=== PATIENT | male | born 1955 | race Caucasian/White ===

== ENCOUNTER 2021-01-10 08:27 | Outpatient (REF) | payer MEDICARE, SELFPAY | END 2021-01-10 08:28 | disposition home or self-care (01) | LOC: HO.LHD 08:27 | PROVIDERS: Visit Provider Nurse Practitioner | DX: Z13.89 Encounter for screening for other disorder (principal) ==

== ENCOUNTER 2021-01-11 00:36 | Outpatient (REF) | payer MEDICARE, SELFPAY | END 2021-01-11 00:37 | disposition home or self-care (01) | LOC: HO.HSH 00:36 | PROVIDERS: Visit Provider Nurse Practitioner | DX: Z13.89 Encounter for screening for other disorder (principal) ==

== ENCOUNTER 2021-01-12 01:17 | Outpatient (REF) | payer MEDICARE, SELFPAY ==
[2021-01-12 09:22] LABS: Alanine Aminotransferase 14 U/L (0-40); Aspartate Amino Transferase 17 U/L (5-37); Cholesterol 195 mg/dL; Glucose Fasting 80 mg/dL (60-99); HDL Cholesterol 31 mg/dL; LDL Cholesterol Calculated 126 mg/dl; Triglycerides 192 mg/dL
[2021-01-12 09:33] LABS: Estimated Average Glucose 97 mg/dL; Hemoglobin A1C 126.0229 umol/L
[2021-01-12 09:48] LABS: Prostate Specific Antigen 6.22 ng/mL (<0.05-4.0)
== END 2021-01-12 01:18 | disposition home or self-care (01) ==
LOC: HO.HSH 01:17
PROVIDERS: Visit Provider Nurse Practitioner
DX: Z12.5 Encounter for screening for malignant neoplasm of prostate (principal); E11.9 Type 2 diabetes mellitus without complications; E78.5 Hyperlipidemia, unspecified; R97.20 Elevated prostate specific antigen [PSA]
CPT/HCPCS: 36415; 80061; 82947; 83036; 84153; 84450; 84460

== ENCOUNTER 2021-01-26 12:48 | Outpatient (REF) | payer MEDICARE, SELFPAY ==
--- NOTE | ~2021-01-26 | XR_ITS ---
EXAMINATION: XR HIP, LEFT CLINICAL INFORMATION: Left hip pain COMPARISON: Lumbar spine 02/20/2014 TECHNIQUE: Two views of the left hip. FINDINGS: There is no visible acute fracture, dislocation. There is an lucency seen overlying the left lateral femoral head most likely a nutrient foramina. There is hypertrophic spurring and subchondral lucencies in the greater trochanter likely degenerative changes. No visible acute fracture or dislocation seen. The soft tissues are normal. XR/XR hip LT min 2V IMPRESSION: No acute fracture or dislocation seen. Lucency seen along the left lateral femoral head is likely a nutrient foramina. There is mild degenerative changes left hip joint.
== END 2021-01-26 12:49 | disposition home or self-care (01) ==
LOC: HO.XRAY 12:48
PROVIDERS: Visit Provider Nurse Practitioner
DX: M25.552 Pain in left hip (principal)
CPT/HCPCS: 73502

== ENCOUNTER 2021-04-20 | Outpatient (REF) | payer MEDICARE, SELFPAY ==
[2021-04-20 08:23] LABS: Anion Gap 12 (12-20); Blood Urea Nitrogen 21 mg/dL (9-16); Calcium 9.4 mg/dL (8.4-10.2); Carbon Dioxide 26 mmol/L (22-29); Chloride 103 mmol/L (96-108); Estimated Glomerular Filt Rate > 60; Glucose Random 88 mg/dL (60-115); Potassium 4.4 mmol/L (3.3-5.1); Sodium 137 mmol/L (135-145)
== END 2021-04-20 00:01 | disposition home or self-care (01) ==
LOC: HO.HSHHMC
PROVIDERS: Visit Provider Nurse Practitioner
DX: M54.9 Dorsalgia, unspecified (principal)
CPT/HCPCS: 36415; 80048

== ENCOUNTER 2021-05-02 06:09 | Outpatient (REF) | payer MEDICARE, SELFPAY ==
[2021-05-02 12:15] LABS: Glucose Urine UA NEG (NEG); Leukocyte Esterase Urine NEG (NEG); Nitrite Urine NEG (NEG); Urine Blood NEG (NEG); Urine Ketones 5 MG/DL (NEG); Urine Protein NEG (NEG-TRACE)
[2021-05-02 12:16] LABS: Appearance Urine CLEAR; Color Urine YELLOW
[2021-05-02 12:57] LABS: Mucus Urine 1+ /LPF; RBC Urine 0 /HPF (0); WBC Urine 0 /HPF (0-4)
== END 2021-05-02 06:10 | disposition home or self-care (01) ==
LOC: HO.HSH4W 06:09
PROVIDERS: Visit Provider Internal Medicine
DX: E78.5 Hyperlipidemia, unspecified (principal); R31.9 Hematuria, unspecified; F20.9 Schizophrenia, unspecified
CPT/HCPCS: 81001; 87086

== ENCOUNTER 2021-05-03 05:00 | Outpatient (REF) | payer MEDICARE, SELFPAY ==
[2021-05-03 07:44] LABS: MANUAL DIFF FLAG NO
[2021-05-03 07:48] LABS: Basophils Percent Auto 0.3 % (0-2); Eosinophils Absolute Auto 0.1 X10*3/uL (0.0-0.4); Eosinophils Percent Auto 0.8 % (0-4); Hematocrit 46.9 % (42-52); Hemoglobin 15.8 g/dl (14.0-18.0); Imm Gran Abs Auto 0.04 X10*3/uL (0.00-0.03); Imm Gran Pct Auto 0.6 % (0.0-0.4); Lymphocytes Absolute Auto 1.5 X10*3/uL (1.2-4.9); Lymphocytes Percent Auto 23.9 % (20-40); Mean Corpuscular HGB Conc 33.7 g/dl (31.0-36.0); Mean Corpuscular Hemoglobin 30.5 pg (27.0-33.0); Mean Corpuscular Volume 90.5 fL (80-98); Mean Platelet Volume 11.3 fL (9.4-12.4); Monocytes Absolute Auto 0.5 X10*3/uL (0.1-1.2); Monocytes Percent Auto 7.5 % (2-11); Neutrophils Absolute Auto 4.3 X10*3/uL (2.0-8.3); Neutrophils Percent Auto 66.9 % (45-73); Platelet Count 207 X10*3/uL (160-400); Red Blood Count 5.18 X10*6/uL (4.60-5.80); Red Cell Distribution Width 13.6 % (11.0-16.0); White Blood Count 6.4 X10*3/uL (4.8-10.8)
[2021-05-03 07:59] LABS: Alanine Aminotransferase 19 U/L (0-40); Albumin Level 4.2 g/dL (3.5-5.0); Alkaline Phosphatase 55 U/L (39-117); Anion Gap 13 (12-20); Aspartate Amino Transferase 15 U/L (5-37); Bilirubin Total 0.9 mg/dL (0.0-1.0); Blood Urea Nitrogen 19 mg/dL (9-16); Calcium 9.5 mg/dL (8.4-10.2); Carbon Dioxide 26 mmol/L (22-29); Chloride 103 mmol/L (96-108); Cholesterol 154 mg/dL; Estimated Glomerular Filt Rate > 60; Glucose Fasting 91 mg/dL (60-99); HDL Cholesterol 28 mg/dL; LDL Cholesterol Calculated 103 mg/dl; Potassium 4.5 mmol/L (3.3-5.1); Sodium 137 mmol/L (135-145); Total Protein 6.7 g/dL (6.5-8.0); Triglycerides 118 mg/dL
[2021-05-03 08:20] LABS: Thyroid Stimulating Hormone 1.13 uIU/mL (0.32-4.0)
[2021-05-06 14:46] LABS: TS Negative Control Passed; TS Panel A 0; TS Panel B 0; TS Positive Control Passed; TSpotTB Negative (SeeBelow)
== END 2021-05-03 05:01 | disposition home or self-care (01) ==
LOC: HO.HSH4W 05:00
PROVIDERS: Visit Provider Internal Medicine
DX: E78.5 Hyperlipidemia, unspecified (principal); R31.9 Hematuria, unspecified; F20.9 Schizophrenia, unspecified
CPT/HCPCS: 36415; 80053; 80061; 84443; 85025; 86481

== ENCOUNTER 2021-05-10 06:08 | Outpatient (REF) | payer MEDICARE, SELFPAY ==
[2021-05-10 09:02] LABS: Erythrocyte Sedimentation Rate 8 MM/HR (0-15)
== END 2021-05-10 06:09 | disposition home or self-care (01) ==
LOC: HO.HSH4W 06:08
PROVIDERS: Visit Provider Internal Medicine
DX: M79.659 Pain in unspecified thigh (principal)
CPT/HCPCS: 36415; 85652

== ENCOUNTER 2021-05-11 18:16 | Outpatient (REF) | payer MEDICARE, SELFPAY ==
[2021-05-11 19:00] LABS: Troponin-I High Sensitivity < 3.5 ng/L (<3.5-35.0)
== END 2021-05-11 18:17 | disposition home or self-care (01) ==
LOC: HO.HSH4W 18:16
PROVIDERS: Visit Provider Internal Medicine
DX: I10 Essential (primary) hypertension (principal)
CPT/HCPCS: 36415; 84484

== ENCOUNTER 2021-06-24 11:10 | Outpatient (REF) | payer MEDICARE, SELFPAY ==
[2021-06-24 14:38] LABS: Vitamin B12 307 pg/mL (200-900)
[2021-06-24 14:53] LABS: Erythrocyte Sedimentation Rate 8 MM/HR (0-15)
== END 2021-06-24 11:11 | disposition home or self-care (01) ==
LOC: HO.HSH4W 11:10
PROVIDERS: Visit Provider Internal Medicine
DX: M79.605 Pain in left leg (principal)
CPT/HCPCS: 36415; 82550; 82607; 83735; 85652

== ENCOUNTER 2021-08-10 07:09 | Outpatient (REF) | payer MEDICARE, SELFPAY ==
[2021-08-10 08:09] LABS: Cholesterol 132 mg/dL; HDL Cholesterol 28 mg/dL; LDL Cholesterol Calculated 89 mg/dl; Triglycerides 77 mg/dL
[2021-08-10 08:33] LABS: Prostate Specific Antigen 6.22 ng/mL (<0.05-4.0)
== END 2021-08-10 07:10 | disposition home or self-care (01) ==
LOC: HO.HSH4W 07:09
PROVIDERS: Visit Provider Internal Medicine
DX: M79.652 Pain in left thigh (principal); Z12.5 Encounter for screening for malignant neoplasm of prostate
CPT/HCPCS: 36415; 80061; 84153

== ENCOUNTER 2021-10-26 06:42 | Outpatient (REF) | payer MEDICARE, SELFPAY ==
[2021-10-26 07:56] LABS: Alanine Aminotransferase 9 U/L (0-40); Albumin Level 3.8 g/dL (3.5-5.0); Alkaline Phosphatase 60 U/L (39-117); Anion Gap 9 (12-20); Aspartate Amino Transferase 13 U/L (5-37); Bilirubin Total 0.7 mg/dL (0.0-1.0); Blood Urea Nitrogen 18 mg/dL (9-16); Calcium 9.2 mg/dL (8.4-10.2); Carbon Dioxide 29 mmol/L (22-29); Chloride 106 mmol/L (96-108); Estimated Glomerular Filt Rate > 60; Glucose Fasting 81 mg/dL (60-99); Potassium 4.2 mmol/L (3.3-5.1); Sodium 140 mmol/L (135-145); Total Protein 6.4 g/dL (6.5-8.0)
[2021-10-26 08:22] LABS: Thyroid Stimulating Hormone 1.82 uIU/mL (0.32-4.0)
== END 2021-10-26 06:43 | disposition home or self-care (01) ==
LOC: HO.HSH4W 06:42
PROVIDERS: Visit Provider Internal Medicine
DX: R97.20 Elevated prostate specific antigen [PSA] (principal); F25.9 Schizoaffective disorder, unspecified; Z12.5 Encounter for screening for malignant neoplasm of prostate
CPT/HCPCS: 36415; 80053; 84153; 84443

== ENCOUNTER 2021-12-28 05:38 | Outpatient (REF) | payer MEDICARE, SELFPAY ==
[2021-12-28 07:33] LABS: Alanine Aminotransferase 13 U/L (0-40); Albumin Level 4.2 g/dL (3.5-5.0); Alkaline Phosphatase 62 U/L (39-117); Anion Gap 12 (12-20); Aspartate Amino Transferase 13 U/L (5-37); Bilirubin Total 0.6 mg/dL (0.0-1.0); Blood Urea Nitrogen 23 mg/dL (9-16); Calcium 9.5 mg/dL (8.4-10.2); Carbon Dioxide 25 mmol/L (22-29); Chloride 105 mmol/L (96-108); Estimated Glomerular Filt Rate > 60; Glucose Fasting 84 mg/dL (60-99); Potassium 4.3 mmol/L (3.3-5.1); Sodium 138 mmol/L (135-145)
[2021-12-28 07:56] LABS: Erythrocyte Sedimentation Rate 10 MM/HR (0-15)
== END 2021-12-28 05:39 | disposition home or self-care (01) ==
LOC: HO.HSH4W 05:38
PROVIDERS: Visit Provider Internal Medicine
DX: F25.9 Schizoaffective disorder, unspecified (principal); M79.18 Myalgia, other site
CPT/HCPCS: 36415; 80053; 85652

== ENCOUNTER 2022-01-31 05:56 | Outpatient (REF) | payer MEDICARE, SELFPAY ==
[2022-01-31 08:24] LABS: Alanine Aminotransferase 11 U/L (0-40); Albumin Level 3.6 g/dL (3.5-5.0); Alkaline Phosphatase 56 U/L (39-117); Anion Gap 12 (12-20); Aspartate Amino Transferase 11 U/L (5-37); Bilirubin Total 0.3 mg/dL (0.0-1.0); Blood Urea Nitrogen 19 mg/dL (9-16); Calcium 8.9 mg/dL (8.4-10.2); Carbon Dioxide 27 mmol/L (22-29); Chloride 106 mmol/L (96-108); Estimated Glomerular Filt Rate > 60; Glucose Fasting 87 mg/dL (60-99); Potassium 4.5 mmol/L (3.3-5.1); Sodium 140 mmol/L (135-145); Total Protein 6.1 g/dL (6.5-8.0)
== END 2022-01-31 05:57 | disposition home or self-care (01) ==
LOC: HO.HSH4W 05:56
PROVIDERS: Visit Provider Internal Medicine
DX: F32.A Depression, unspecified (principal); M54.50 Low back pain, unspecified
CPT/HCPCS: 36415; 80053; 84443

== ENCOUNTER 2022-02-22 06:04 | Outpatient (REF) | payer MEDICARE, SELFPAY ==
[2022-02-22 07:30] LABS: Alanine Aminotransferase 17 U/L (0-40); Albumin Level 4.2 g/dL (3.5-5.0); Alkaline Phosphatase 66 U/L (39-117); Anion Gap 13 (12-20); Aspartate Amino Transferase 17 U/L (5-37); Bilirubin Total 0.5 mg/dL (0.0-1.0); Blood Urea Nitrogen 22 mg/dL (9-16); Calcium 9.9 mg/dL (8.4-10.2); Carbon Dioxide 26 mmol/L (22-29); Chloride 105 mmol/L (96-108); Estimated Glomerular Filt Rate > 60; Glucose Fasting 77 mg/dL (60-99); Potassium 4.5 mmol/L (3.3-5.1); Sodium 139 mmol/L (135-145); Total Protein 7.4 g/dL (6.5-8.0)
== END 2022-02-22 06:05 | disposition home or self-care (01) ==
LOC: HO.HSH4W 06:04
PROVIDERS: Visit Provider Internal Medicine
DX: F25.9 Schizoaffective disorder, unspecified (principal)
CPT/HCPCS: 36415; 80053

== ENCOUNTER 2022-03-16 13:38 | Outpatient (REF) | payer MEDICARE, SELFPAY ==
--- NOTE | ~2022-03-16 | CT_ITS ---
EXAMINATION: CT PELVIS WITH CONTRAST CLINICAL INFORMATION: Left ilium/left buttocks pain. COMPARISON: None. TECHNIQUE: Helical scanning was performed with submillimeter collimation through the pelvis with the use of oral contrast and during bolus intravenous injection of 85 mL of Omnipaque 350 intravenous contrast. Sagittal and coronal multiplanar 2-D reconstructions were obtained. This CT examination was performed using dose optimization techniques as appropriate, variously including the following: *Automated exposure control *Adjustment of mA and/or kV according to patient size (this includes techniques or standardized protocols for targeted exams where dose is matched to indication/reason for exam; i.e. extremities or head) *Use of iterative reconstruction technique DLP: 506 mGy-cm FINDINGS: PELVIS: The pelvic bowel loops are unremarkable. No pelvic bowel obstruction. Mild prostatomegaly. Otherwise, the visualized intrapelvic structures are unremarkable. No pelvic wall hernia. OSSEOUS STRUCTURES: No acute fracture or dislocation. No concerning lytic or blastic osseous lesion. Severe left hip joint space narrowing with subchondral cirrhosis and marginal osteophytes. More moderate right hip joint space narrowing with marginal osteophytes. Partially visualized degenerative disc disease and facet arthropathy within the lower lumbar spine. CT/CT pelvis w con IMPRESSION: 1. No acute fracture or dislocation. No concerning lytic or blastic osseous lesion. 2. Severe left and moderate right hip osteoarthritis. Partially visualized degenerative disc disease and facet arthropathy within the lower lumbar spine. 3. Prostatomegaly.
[2022-03-16] MEDS: iohexoL 350 MG/ML 100 ML INFUS..BTL IV (16:57)
[2022-03-16] MEDS: Barium Sulfate Oral (Berry) 450 ML ORAL.SUSP 900 ML PO (16:58)
== END 2022-03-16 13:39 | disposition home or self-care (01) ==
LOC: HO.CT 13:38
PROVIDERS: Visit Provider Internal Medicine
DX: M89.9 Disorder of bone, unspecified (principal); C49.21 Malignant neoplasm of connective and soft tissue of right lower limb, including hip
CPT/HCPCS: 72193; Q9967

== ENCOUNTER 2022-09-05 05:43 | Outpatient (REF) | payer MEDICARE, SELFPAY ==
[2022-09-05 08:00] LABS: MANUAL DIFF FLAG NO
[2022-09-05 08:02] LABS: Basophils Percent Auto 0.7 % (0-2); Eosinophils Absolute Auto 0.1 X10*3/uL (0.0-0.4); Eosinophils Percent Auto 2.2 % (0-4); Hematocrit 48.6 % (42.0-52.0); Hemoglobin 16.3 g/dl (14.0-18.0); Imm Gran Abs Auto 0.03 X10*3/uL (0.00-0.03); Imm Gran Pct Auto 0.5 % (0.0-0.4); Lymphocytes Absolute Auto 2.4 X10*3/uL (1.2-4.9); Lymphocytes Percent Auto 40.6 % (20-40); Mean Corpuscular HGB Conc 33.5 g/dl (31.0-36.0); Mean Corpuscular Hemoglobin 30.7 pg (27.0-33.0); Mean Corpuscular Volume 91.5 fL (80.0-98.0); Mean Platelet Volume 11.1 fL (9.4-12.4); Monocytes Absolute Auto 0.4 X10*3/uL (0.1-1.2); Monocytes Percent Auto 7.3 % (2-11); Neutrophils Absolute Auto 2.9 x10*3/uL (2.0-8.3); Neutrophils Percent Auto 48.7 % (45-73); Platelet Count 230 X10*3/uL (160-400); Red Blood Count 5.31 X10*6/uL (4.60-5.80); Red Cell Distribution Width 13.2 % (11.0-16.0); White Blood Count 5.9 X10*3/uL (4.8-10.8)
[2022-09-05 08:46] LABS: Alanine Aminotransferase 14 U/L (0-40); Albumin Level 4.1 g/dL (3.5-5.0); Alkaline Phosphatase 66 U/L (39-117); Anion Gap 15 (12-20); Aspartate Amino Transferase 16 U/L (5-37); Bilirubin Total 0.4 mg/dL (0.0-1.0); Blood Urea Nitrogen 27 mg/dL (9-16); Calcium 9.3 mg/dL (8.4-10.2); Carbon Dioxide 24 mmol/L (22-29); Chloride 106 mmol/L (96-108); Erythrocyte Sedimentation Rate 33 MM/HR (0-15); Estimated Glomerular Filt Rate > 60; Glucose Fasting 88 mg/dL (60-99); Potassium 4.7 mmol/L (3.3-5.1); Sodium 140 mmol/L (135-145); Total Protein 7.1 g/dL (6.5-8.0); Uric Acid 6.7 mg/dL (3.4-7.0)
== END 2022-09-05 05:44 | disposition home or self-care (01) ==
LOC: HO.HSH4W 05:43
PROVIDERS: Visit Provider Internal Medicine
DX: M25.561 Pain in right knee (principal); F20.9 Schizophrenia, unspecified
CPT/HCPCS: 36415; 80053; 84550; 85025; 85652

== ENCOUNTER 2023-04-05 18:53 | Outpatient (REF) | payer MEDICARE, SELFPAY ==
[2023-04-05 19:19] LABS: Appearance Urine Clear; Color Urine Yellow; Glucose Urine UA Negative (Negative); Leukocyte Esterase Urine Negative (Negative); Nitrite Urine Negative (Negative); PH 5.5 (5.0-9.0); Urine Blood Negative (Negative); Urine Ketones Negative (Negative); Urine Protein Negative (Neg-Trace)
== END 2023-04-05 18:54 | disposition home or self-care (01) ==
LOC: HO.HSH4W 18:53
PROVIDERS: Visit Provider Internal Medicine
DX: R31.29 Other microscopic hematuria (principal)
CPT/HCPCS: 81003

== ENCOUNTER 2023-04-06 05:44 | Outpatient (REF) | payer MEDICARE, SELFPAY ==
[2023-04-06 08:39] LABS: PSA,Total (Free>4and<10) 7.41 ng/mL (0.00-4.00)
[2023-04-09 11:32] LABS: Free Prostate Spec Ag 1.5 ng/mL; Percent Free Prostate Spec Ag 21 % (calc) (>25)
== END 2023-04-06 05:45 | disposition home or self-care (01) ==
LOC: HO.HSH4W 05:44
PROVIDERS: Visit Provider Internal Medicine
DX: Z12.5 Encounter for screening for malignant neoplasm of prostate (principal); R97.20 Elevated prostate specific antigen [PSA]
CPT/HCPCS: 36415; 84153; 84154

== ENCOUNTER 2023-04-18 09:30 | Outpatient (AMB) | payer MEDICARE, SELFPAY ==
--- NOTE | 2023-04-18 09:33 | MHC.OFFVIS ---
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: No Allergies No Known Allergies [No Known Allergies*] Allergy (Unverified 04/18/23 20:02) Medication List - Last Reconciled 04/18/23 by KOSTAS Bond acetaminophen 650 mg PO BEDTIME PRN bisacodyl 10 mg MT DAILY PRN docusate sodium 100 mg PO DAILY duloxetine 30 mg PO DAILY edetate disodium 3% drps ophthalmic (eye) gabapentin 300 mg PO BEDTIME lidocaine 5% 1 patch topical DAILY loratadine (Allergy Relief (loratadine)) 10 mg PO DAILY magnesium hydroxide (Dulcolax (magnesium hydroxide)) 30 mL PO DAILY PRN melatonin 3 mg PO BEDTIME PRN olanzapine 5 mg PO DAILY olanzapine 10 mg PO BEDTIME polyethylene glycol 3350 17 grams PO DAILY sodium phosphates 19-7 gram/118 mL (Enema Disposable) 118 mL MT DAILY PRN HPI HPI Comments History of Present Illness Details Aki is a 67-year-old male patient of Dr. Arevalo who resides at the [facility]. He has a past medical history of age related osteoporosis, benign prostatic hyperplasia without lower urinary tract symptoms, constipation, deviated nasal septum, elevated PSA, hypertension, hyperlipidemia, insomnia, major depressive disorder, nicotine dependence, schizophrenia, Parkinson's disease, and type 2 diabetes. He is being followed up on today for elevated PSA. In discussion with the patient today he reports to be doing and feeling well. He denies any issues with his urination. He reports to be happy with current voiding parameters. When asked he denies urinary urgency, urinary frequency, incontinence, nocturia, hematuria, dysuria, foul smelling urine, changes to urinary stream, flank pain, fever, and or chills. Discussed at length potential causes for elevated PSA. Discussed obtaining redraw of PSA with no sex the night before, no caffeine morning of, and no heavy lifting 1-2 days prior to lab draw. Discussed obtaining retroperitoneal ultrasound for further assessment evaluation. MAGGIE offered however declined. He denies any known family history of prostate cancer. PSAs are as follows: 11/15--4.8 04/15--7.4 percent free 21%. [facility] Medical History (Updated 04/18/23 @ 20:11 by KOSTAS Bond) Age-related osteoporosis without current pathological fracture Benign prostatic hyperplasia without lower urinary tract symptoms Constipation, unspecified Deviated nasal septum Elevated prostate specific antigen [PSA] Essential (primary) hypertension Hyperlipidemia, unspecified Insomnia, unspecified Major depressive disorder, single episode, unspecified Nicotine dependence, cigarettes, uncomplicated Other schizoaffective disorders Other specified disorders of nose and nasal sinuses Pain in left knee Pain in unspecified thigh Pain, unspecified Parkinson's disease Personal history of nicotine dependence Personal history of other diseases of urinary system Psychophysiologic insomnia Rash and other nonspecific skin eruption Sacrococcygeal disorders, not elsewhere classified Schizoaffective disorder, unspecified Schizophrenia, unspecified Sciatica, left side Type 2 diabetes mellitus without complications Unspecified cataract Surgical History History of prostate biopsy (~2018) Review of Systems Const Reports as per HPI Eyes Reports no additional complaints ENT Reports no additional complaints Card Reports as per HPI Resp Reports no additional complaints GI Reports as per HPI Reports as per HPI Neuro Reports as per HPI Psych Reports as per HPI Endo Reports as per HPI Physical Exam Const General: cooperative, comfortable, no acute distress, well developed, alert and awake Orientation/consciousness: patient oriented x3 Limitations: no limitations HEENT Head: Yes normal to inspection, Yes normocephalic and Yes atraumatic Ears: hearing grossly normal bilaterally Eyes General: appearance normal, both eyes and all related structures Neck Neck: Yes normal visual inspection and Yes trachea midline Chest Chest palpation & inspection: normal inspection of the chest Resp Effort & Inspection: normal respiratory effort and able to speak in complete sentences Cardio Rate: regular rate GI Inspection: Yes normal to inspection General: Yes no CVA tenderness Back/Spine/Pelvis Back: no CVA tenderness Skin General skin exam: no rashes or lesions noted Neuro General: patient oriented x3 Extrem General: Yes normal to inspection Psych Appearance: grossly normal Speech and movement: Normal speech and movement present and Clear speech present Affect: normal affect Attitude: cooperative and Avoids eye contact (attititude/behavior) Thought process: Normal thought process present Insight: Fair insight present (Psych) Judgement: Fair judgement present (Psych) Assessment & Plan Assessment & Plan (1) Elevated prostate specific antigen [PSA]: Code(s): R97.20 - Elevated prostate specific antigen [PSA] Plan Discussed at length potential causes for elevated PSA. Patient denies any bothersome urinary issues. He reports to be happy with current voiding parameters. MAGGIE offered; deferred/declined. Recommendations were made for: Redraw of PSA% free and total Discussed obtaining retroperitoneal ultrasound for further assessment evaluation Follow up in 4-6 weeks with imaging and lab to be completed prior; or sooner with any issues, concerns, and or questions. Orders: Orders PSA,Total (Free>4and<10) 04/18/23 R97.20 - Elevated prostate specific antigen [PSA] US retroperitoneal comp 04/18/23 R97.20 - Elevated prostate specific antigen [PSA] Patient Instructions: The patient had an opportunity to ask questions regarding the treatment plan. All questions were answered. Physical exam, labs, and imaging were discussed and reviewed in detail. As well as risks, benefits, and discussion of treatment choices. No major barriers to understanding were identified. The patient expressed understanding and agreement with the above treatment plan. The patient was made aware they should contact our office by phone for worsening of their current condition, the appearance of new symptoms, or with any questions or concerns. Compliance is encouraged with any medications and follow up testing that is ordered. It is a privilege to be allowed the opportunity to participate in? your urological care.? Again, if you have any questions or concerns If you have any questions or concerns please do not hesitate to contact me. The office is [phone]. This note is constructed using voice recognition software. While every effort has been made to ensure accuracy tube balancer errors may have been included. Yours sincerely, KOSTAS Bond Coding Diagnoses Elevated prostate specific antigen [PSA] R97.20
--- NOTE | 2023-04-20 16:27 | A.OFFVIS_ITS ---
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 Allergies No Known Allergies [No Known Allergies*] Allergy (Unverified 04/18/23 20:02) Medication List - Last Reconciled 04/18/23 by KOSTAS Bond acetaminophen 650 mg PO BEDTIME PRN bisacodyl 10 mg ID DAILY PRN docusate sodium 100 mg PO DAILY duloxetine 30 mg PO DAILY edetate disodium 3% drps ophthalmic (eye) gabapentin 300 mg PO BEDTIME lidocaine 5% 1 patch topical DAILY loratadine (Allergy Relief (loratadine)) 10 mg PO DAILY magnesium hydroxide (Dulcolax (magnesium hydroxide)) 30 mL PO DAILY PRN melatonin 3 mg PO BEDTIME PRN olanzapine 5 mg PO DAILY olanzapine 10 mg PO BEDTIME polyethylene glycol 3350 17 grams PO DAILY sodium phosphates 19-7 gram/118 mL (Enema Disposable) 118 mL ID DAILY PRN HPI HPI Comments History of Present Illness Details Aki is a 67-year-old male patient of Dr. Arevalo who resides at the [facility]. He has a past medical history of age related osteoporosis, benign prostatic hyperplasia without lower urinary tract symptoms, constipation, deviated nasal septum, elevated PSA, hypertension, hyperlipidemia, insomnia, major depressive disorder, nicotine dependence, schizophrenia, Parkinson's disease, and type 2 diabetes. He is being followed up on today for elevated PSA. In discussion with the patient today he reports to be doing and feeling well. He denies any issues with his urination. He reports to be happy with current voiding parameters. When asked he denies urinary urgency, urinary frequency, incontinence, nocturia, hematuria, dysuria, foul smelling urine, changes to urinary stream, flank pain, fever, and or chills. Discussed at length potential causes for elevated PSA. Discussed obtaining redraw of PSA with no sex the night before, no caffeine morning of, and no heavy lifting 1-2 days prior to lab draw. Discussed obtaining retroperitoneal ultrasound for further assessment evaluation. MAGGIE offered however declined. He denies any known family history of prostate cancer. PSAs are as follows: 11/15--4.8 04/15--7.4 percent free 21%. [facility] Medical History (Updated 04/18/23 @ 20:11 by KOSTAS Bond) Age-related osteoporosis without current pathological fracture Benign prostatic hyperplasia without lower urinary tract symptoms Constipation, unspecified Deviated nasal septum Elevated prostate specific antigen [PSA] Essential (primary) hypertension Hyperlipidemia, unspecified Insomnia, unspecified Major depressive disorder, single episode, unspecified Nicotine dependence, cigarettes, uncomplicated Other schizoaffective disorders Other specified disorders of nose and nasal sinuses Pain in left knee Pain in unspecified thigh Pain, unspecified Parkinson's disease Personal history of nicotine dependence Personal history of other diseases of urinary system Psychophysiologic insomnia Rash and other nonspecific skin eruption Sacrococcygeal disorders, not elsewhere classified Schizoaffective disorder, unspecified Schizophrenia, unspecified Sciatica, left side Type 2 diabetes mellitus without complications Unspecified cataract Surgical History History of prostate biopsy (~2018) Review of Systems Const Reports as per HPI Eyes Reports no additional complaints ENT Reports as per HPI Card Reports as per HPI Resp Reports no additional complaints GI Reports as per HPI Reports as per HPI Musc Reports as per HPI Neuro Reports as per HPI Psych Reports as per HPI Endo Reports as per HPI Physical Exam Const General: cooperative, comfortable, no acute distress, well developed, alert and awake Orientation/consciousness: patient oriented x3 Limitations: no limitations HEENT Head: Yes normal to inspection, Yes normocephalic and Yes atraumatic Ears: hearing grossly normal bilaterally Eyes General: appearance normal, both eyes and all related structures Neck Neck: Yes normal visual inspection and Yes trachea midline Chest Chest palpation & inspection: normal inspection of the chest Resp Effort & Inspection: normal respiratory effort and able to speak in complete sentences Cardio Rate: regular rate GI Inspection: Yes normal to inspection General: Yes no CVA tenderness Back/Spine/Pelvis Back: no CVA tenderness Skin General skin exam: no rashes or lesions noted Neuro General: patient oriented x3 Extrem General: Yes normal to inspection Psych Appearance: grossly normal and well kempt Speech and movement: Normal speech and movement present and Clear speech present Affect: Other affect and mood findings present (flat affect ) Attitude: cooperative Thought content: Normal thought content present Insight: Fair insight present (Psych) Judgement: Fair judgement present (Psych) Assessment & Plan Assessment & Plan (1) Elevated prostate specific antigen [PSA]: Code(s): R97.20 - Elevated prostate specific antigen [PSA] Plan Discussed at length potential causes for elevated PSA. Patient denies any bothersome urinary issues. He reports to be happy with current voiding parameters. MAGGIE offered; deferred/declined. Recommendations were made for: Redraw of PSA% free and total Discussed obtaining retroperitoneal ultrasound for further assessment evaluation Follow up in 4-6 weeks with imaging and lab to be completed prior; or sooner with any issues, concerns, and or questions. Orders: Orders PSA,Total (Free>4and<10) 04/24/23 R97.20 - Elevated prostate specific antigen [PSA] US retroperitoneal comp 04/18/23 R97.20 - Elevated prostate specific antigen [PSA] Patient Instructions: The patient had an opportunity to ask questions regarding the treatment plan. All questions were answered. Physical exam, labs, and imaging were discussed and reviewed in detail. As well as risks, benefits, and discussion of treatment choices. No major barriers to understanding were identified. The patient expressed understanding and agreement with the above treatment plan. The patient was made aware they should contact our office by phone for worsening of their current condition, the appearance of new symptoms, or with any questions or concerns. Compliance is encouraged with any medications and follow up testing that is ordered. It is a privilege to be allowed the opportunity to participate in your urological care. Again, if you have any questions or concerns If you have any questions or concerns please do not hesitate to contact me. The office is [phone]. This note is constructed using voice recognition software. While every effort has been made to ensure accuracy stabilizing machine operator errors may have been included. Yours sincerely, KOSTAS Bond Coding Level of Care Code 26365-Sxal Fac initial, low Diagnoses Elevated prostate specific antigen [PSA] R97.20 Time Spent (min) 20
== END 2023-04-18 16:30 | disposition home or self-care (01) ==
LOC: HO.HUSV 09:30
PROVIDERS: PCP Internal Medicine; Visit Provider Nurse Practitioner Family
DX: R97.20 Elevated prostate specific antigen [PSA] (principal)
CPT/HCPCS: 99304

== ENCOUNTER 2023-04-24 05:35 | Outpatient (REF) | payer MEDICARE, SELFPAY ==
[2023-04-24 07:43] LABS: PSA,Total (Free>4and<10) 6.34 ng/mL (0.00-4.00)
[2023-04-25 11:08] LABS: Free Prostate Spec Ag 1.1 ng/mL; Percent Free Prostate Spec Ag 18 % (calc) (>25); Prostate Specific Ag Total 6.1 ng/mL (< OR = 4.0)
== END 2023-04-24 05:36 | disposition home or self-care (01) ==
LOC: HO.HSH4W 05:35
PROVIDERS: Absent Provider Internal Medicine Interventional Cardiology; Visit Provider Nurse Practitioner Family
DX: R97.20 Elevated prostate specific antigen [PSA] (principal); Z12.5 Encounter for screening for malignant neoplasm of prostate
CPT/HCPCS: 36415; 84153; 84154

== ENCOUNTER 2023-05-03 10:03 | Outpatient (REF) | payer MEDICARE, SELFPAY ==
--- NOTE | ~2023-05-03 | US_ITS ---
EXAMINATION: US RETROPERITONEAL COMPLETE (RENAL) CLINICAL INFORMATION: Elevated prostate specific antigen. COMPARISON: CT pelvis 03/16/2022. TECHNIQUE: Real-time imaging of the kidneys and bladder. FINDINGS: RIGHT KIDNEY: 10.8 x 4.2 x 5.0 cm (SAG x AP x TRV). The kidney is normal in size, contour, and echogenicity. Renal cortical thickness is normal. No calculi or focal parenchymal lesions. No hydronephrosis. LEFT KIDNEY: 11.0 x 4.9 x 4.5 cm (SAG x AP x TRV). The kidney is normal in size, contour, and echogenicity. Renal cortical thickness is normal. No calculi or focal parenchymal lesions. No hydronephrosis. BLADDER: Well distended and normal. Bilateral ureteral jets are demonstrated. Prevoid bladder volume is 247 mL. Postvoid bladder volume is 12.2 mL. Enlarged prostate, volume 44.7 mL. US/US retroperitoneal comp IMPRESSION: 1. Unremarkable sonographic appearance of the kidneys. 2. Prostatomegaly.
== END 2023-05-03 10:04 | disposition home or self-care (01) ==
LOC: HO.US 10:03
PROVIDERS: Referring Provider Nurse Practitioner Family; Visit Provider Internal Medicine Medical Oncology
DX: R97.20 Elevated prostate specific antigen [PSA] (principal)
CPT/HCPCS: 76770

== ENCOUNTER 2023-05-30 09:46 | Outpatient (AMB) | payer MEDICARE, SELFPAY ==
--- NOTE | 2023-05-30 12:54 | HO.VETSHOME ---
Intake Intake Visit Reasons: US- follow up Tactical Intelligence Officer Required: No Allergies No Known Allergies [No Known Allergies*] Allergy (Unverified 05/30/23 12:55) HPI HPI Comments History of Present Illness Details Aki is a 67-year-old male patient of Dr. Arevalo who resides at [facility]. He has a past medical history of age related osteoporosis, benign prostatic hyperplasia without lower urinary tract symptoms, constipation, deviated nasal septum, elevated PSA, hypertension, hyperlipidemia, insomnia, major depressive disorder, nicotine dependence, schizophrenia, Parkinson's disease, and type 2 diabetes. He is being followed up on today for elevated PSA. Of note, patient was seen approximately 6 weeks ago at which time a redraw of PSA and retroperitoneal ordered for further assessment evaluation. These results reviewed with the patient today. Bilateral kidneys with no calculi, lesions, and or hydronephrosis noted. The bladder is well distended and normal. Pre void bladder volume is approximately 250 mL. Postvoid bladder volume is approximately 10 mL. Enlarged prostate with a volume of approximately 45 mL. PSAs are as follows: 09/10--4.8 09/10--5.5 % free 20% 04/11--5.3 11/13--4.3 11/13--5.1 % free 18% 01/12--6.2 08/14--6.2 11/15--4.8 04/15--7.7 04/15--7.0 % free 21% 05/16--6.3 05/16--6.1 % free 18% In discussion with the patient today he reports to be doing and feeling well. He denies any issues with his urination. He reports to be happy with current voiding parameters. When asked he denies urinary urgency, urinary frequency, incontinence, nocturia, hematuria, dysuria, foul smelling urine, changes to urinary stream, flank pain, fever, and or chills. Discussed at length potential causes for elevated PSA. Discussed trial of finasteride 5 mg daily verses prostate biopsy versus surveillance monitoring. Discussed risks and benefits of these asformentioned interventions/treatment options. MAGGIE offered again at todays visit however declined. He denies any known family history of prostate cancer. [facility] Medical History Age-related osteoporosis without current pathological fracture Benign prostatic hyperplasia without lower urinary tract symptoms Constipation, unspecified Deviated nasal septum Elevated prostate specific antigen [PSA] Essential (primary) hypertension Hyperlipidemia, unspecified Insomnia, unspecified Major depressive disorder, single episode, unspecified Nicotine dependence, cigarettes, uncomplicated Other schizoaffective disorders Other specified disorders of nose and nasal sinuses Pain in left knee Pain in unspecified thigh Pain, unspecified Parkinson's disease Personal history of nicotine dependence Personal history of other diseases of urinary system Psychophysiologic insomnia Rash and other nonspecific skin eruption Sacrococcygeal disorders, not elsewhere classified Schizoaffective disorder, unspecified Schizophrenia, unspecified Sciatica, left side Type 2 diabetes mellitus without complications Unspecified cataract Surgical History History of prostate biopsy (~2018) Review of Systems Const Reports as per HPI Eyes Reports no additional complaints ENT Reports as per HPI Card Reports as per HPI Resp Reports no additional complaints GI Reports as per HPI Reports as per HPI Musc Reports as per HPI Neuro Reports as per HPI Psych Reports as per HPI Endo Reports as per HPI Physical Exam Const General: cooperative, comfortable, no acute distress, well developed, alert and awake Orientation/consciousness: patient oriented x3 Limitations: no limitations HEENT Head: Yes normal to inspection, Yes normocephalic and Yes atraumatic Ears: hearing grossly normal bilaterally Eyes General: appearance normal, both eyes and all related structures Neck Neck: Yes normal visual inspection and Yes trachea midline Chest Chest palpation & inspection: normal inspection of the chest Resp Effort & Inspection: normal respiratory effort and able to speak in complete sentences Cardio Rate: regular rate GI Inspection: Yes normal to inspection General: Yes no CVA tenderness Back/Spine/Pelvis Back: no CVA tenderness Skin General skin exam: no rashes or lesions noted Neuro General: patient oriented x3 Extrem General: Yes normal to inspection Psych Appearance: grossly normal and well kempt Speech and movement: Normal speech and movement present and Clear speech present Affect: Other affect and mood findings present (flat affect ) Attitude: cooperative Thought content: Normal thought content present Insight: Fair insight present (Psych) Judgement: Fair judgement present (Psych) Results Reviewed Results Reviewed: Date of Service: 05/03/23 EXAMINATION: US RETROPERITONEAL COMPLETE (RENAL) FINDINGS: RIGHT KIDNEY: 10.8 x 4.2 x 5.0 cm (SAG x AP x TRV). The kidney is normal in size, contour, and echogenicity. Renal cortical thickness is normal. No calculi or focal parenchymal lesions. No hydronephrosis. LEFT KIDNEY: 11.0 x 4.9 x 4.5 cm (SAG x AP x TRV). The kidney is normal in size, contour, and echogenicity. Renal cortical thickness is normal. No calculi or focal parenchymal lesions. No hydronephrosis. BLADDER: Well distended and normal. Bilateral ureteral jets are demonstrated. Prevoid bladder volume is 247 mL. Postvoid bladder volume is 12.2 mL. Enlarged prostate, volume 44.7 mL. IMPRESSION: 1.? Unremarkable sonographic appearance of the kidneys. 2.? Prostatomegaly. Assessment & Plan Assessment & Plan (1) Elevated prostate specific antigen [PSA]: Code(s): R97.20 - Elevated prostate specific antigen [PSA] Plan Recent PSA results reviewed with the patient today; as noted above. Recent retroperitoneal ultrasound results reviewed with the patient today; as noted above. Discussed at length potential causes for elevated PSA. Discussed surveillance monitoring versus prostate biopsy verses trial of finasteride; discussed risks and benefits of these mentioned interventions/treatment options. Recommending to Start 5 mg of finasteride daily. Recommending to obtain PSA free and total in 4 months. Patient denies any bothersome urinary issues or concerns at this time. He reports to be happy with current voiding parameters Discussed at length importance of limiting/quitting smoking for overall health and well-being. All questions were answered. Follow-up in 4 months with lab to be completed prior; or sooner with any issues, concerns, and or questions. Orders: Orders PSA,Total (Free>4and<10) 4 Months R97.20 - Elevated prostate specific antigen [PSA] Patient Instructions: The patient had an opportunity to ask questions regarding the treatment plan. All questions were answered. Physical exam, labs, and imaging were discussed and reviewed in detail. As well as risks, benefits, and discussion of treatment choices. No major barriers to understanding were identified. The patient expressed understanding and agreement with the above treatment plan. The patient was made aware they should contact our office by phone for worsening of their current condition, the appearance of new symptoms, or with any questions or concerns. Compliance is encouraged with any medications and follow up testing that is ordered. It is a privilege to be allowed the opportunity to participate in? your urological care.? Again, if you have any questions or concerns If you have any questions or concerns please do not hesitate to contact me. The office is [phone]. This note is constructed using voice recognition software. While every effort has been made to ensure accuracy side seam machine operator errors may have been included. Yours sincerely, KOSTAS Bond Coding Level of Care Code 52085-Pftk Fac sub, mod Diagnoses Elevated prostate specific antigen [PSA] R97.20 Time Spent (min) 20
== END 2023-05-30 14:00 | disposition home or self-care (01) ==
PROVIDERS: PCP Internal Medicine; Visit Provider Nurse Practitioner Family
DX: R97.20 Elevated prostate specific antigen [PSA] (principal)
CPT/HCPCS: 99309

== ENCOUNTER 2023-08-27 07:39 | Outpatient (REF) | payer MEDICARE, SELFPAY ==
--- NOTE | ~2023-08-27 | MR_ITS ---
EXAMINATION: MR LUMBAR SPINE WITHOUT CONTRAST CLINICAL INFORMATION: Severe low back pain radiating into both lower extremities. Spinal stenosis. COMPARISON: Lumbar spine radiographs 02/20/2014. TECHNIQUE: MRI of the lumbar spine was obtained using routine sequences without contrast. FINDINGS: There is transitional spinal anatomy at the lumbosacral junction with sacralization of the L5 vertebral segment. The lowest rib-bearing vertebral segment will be designated as T12. There is slight grade 1 retrolisthesis of L2 on L3 and L3 on L4. Vertebral heights are preserved. There are type I degenerative endplate changes at and L1-L2, L2-L3, and L3-L4. There is loss of intervertebral disc height and T2 signal intensity at multiple levels related to disc degeneration. The tip of the conus medullaris is located at T12-L1. No mass effect on the conus. Visualized distal cord signal intensity is normal. At T12-L1 there is a left central annular fissure associated with a bulging disc. No canal stenosis. No mass effect on the traversing or foraminal nerve roots. At L1-L2 there is a right central and left central annular fissure associated with a bulging disc. Bilateral facet degenerative change. No canal stenosis. No mass effect on the traversing or foraminal nerve roots. At L2-L3 there is a shallow central protrusion superimposed upon a bulging disc. Bilateral facet degenerative change. Mild canal stenosis. Subarticular zone narrowing causes displacement of both traversing L3 nerve roots. No foraminal nerve root compression. At L3-L4 there is a broad shallow central protrusion superimposed upon a bulging disc. Bilateral facet degenerative change. Mild canal stenosis. Partial effacement of the perineural fat with no more than mild mass effect on the right L3 foraminal nerve root. At L4-L5 there is a shallow central protrusion superimposed upon a bulging disc. Advanced bilateral facet degenerative change. No canal stenosis. Moderate compression of both L4 foraminal nerve roots. At L5-S1 the annular contour is normal. No canal or neuroforaminal compromise. Limited visualization of the retroperitoneal anatomy reveals a few small well marginated benign-appearing cystic lesions within both kidneys. Psoas and paraspinal muscle groups are symmetric. MR/MR lumbar spine wo con IMPRESSION: There is transitional spinal anatomy at the lumbosacral junction with sacralization of the L5 vertebral segment. The lowest rib-bearing vertebral segment will be designated as T12. There is multilevel degenerative spondylosis of the lumbar spine with slight grade 1 retrolisthesis of L2 on L3 and L3 on L4. Mild canal stenosis at L2-L3 and L3-L4. There are varying degrees of mass effect on the traversing and foraminal segments of the nerve roots as described above. For instance at L4-L5 there is moderate compression of both L4 foraminal nerve roots.
== END 2023-08-27 07:40 | disposition home or self-care (01) ==
LOC: HO.MRI 07:39
PROVIDERS: Visit Provider Internal Medicine
DX: M54.50 Low back pain, unspecified (principal)
CPT/HCPCS: 72148

== ENCOUNTER 2023-10-01 05:10 | Outpatient (REF) | payer MEDICARE, SELFPAY | END 2023-10-01 05:11 | disposition home or self-care (01) | LOC: HO.HSH4W 05:10 | PROVIDERS: Visit Provider Internal Medicine | DX: Z12.5 Encounter for screening for malignant neoplasm of prostate (principal); R97.20 Elevated prostate specific antigen [PSA]; N40.0 Benign prostatic hyperplasia without lower urinary tract symptoms | CPT/HCPCS: 36415; 84153 ==

== ENCOUNTER 2023-12-06 06:48 | Outpatient (REF) | payer MEDICARE, SELFPAY ==
[2023-12-06 06:52] LABS: MANUAL DIFF FLAG NO
[2023-12-06 07:03] LABS: Basophils Absolute Auto 0.1 X10*3/uL (0.0-0.2); Basophils Percent Auto 1.1 % (0-2); Eosinophils Absolute Auto 0.3 X10*3/uL (0.0-0.4); Eosinophils Percent Auto 5.2 % (0-4); Hematocrit 44.1 % (42.0-52.0); Imm Gran Abs Auto 0.03 X10*3/uL (0.00-0.03); Imm Gran Pct Auto 0.5 % (0.0-0.4); Lymphocytes Absolute Auto 2.1 X10*3/uL (1.2-4.9); Lymphocytes Percent Auto 37.7 % (20-40); Mean Corpuscular Hemoglobin 30.4 pg (27.0-33.0); Mean Corpuscular Volume 89.5 fL (80.0-98.0); Mean Platelet Volume 10.7 fL (9.4-12.4); Monocytes Absolute Auto 0.5 X10*3/uL (0.1-1.2); Monocytes Percent Auto 8.9 % (2-11); Neutrophils Absolute Auto 2.6 x10*3/uL (2.0-8.3); Neutrophils Percent Auto 46.6 % (45-73); Platelet Count 163 X10*3/uL (160-400); Red Blood Count 4.93 X10*6/uL (4.60-5.80); Red Cell Distribution Width 13.4 % (11.0-16.0); White Blood Count 5.6 X10*3/uL (4.8-10.8)
[2023-12-06 07:17] LABS: Alanine Aminotransferase 13 U/L (0-40); Albumin Level 3.7 g/dL (3.5-5.0); Alkaline Phosphatase 66 U/L (39-117); Anion Gap 10 (12-20); Aspartate Amino Transferase 15 U/L (5-37); Bilirubin Total 0.4 mg/dL (0.0-1.0); Blood Urea Nitrogen 25 mg/dL (9-16); Carbon Dioxide 26 mmol/L (22-29); Chloride 108 mmol/L (96-108); Estimated Glomerular Filt Rate > 60; Glucose Random 95 mg/dL (60-115); Potassium 4.1 mmol/L (3.3-5.1); Sodium 140 mmol/L (135-145); Total Protein 6.6 g/dL (6.5-8.0)
[2023-12-06 07:54] LABS: Erythrocyte Sedimentation Rate 19 MM/HR (0-15)
== END 2023-12-06 06:49 | disposition home or self-care (01) ==
LOC: HO.HSH4W 06:48
PROVIDERS: Visit Provider Internal Medicine
DX: F20.9 Schizophrenia, unspecified (principal); M54.9 Dorsalgia, unspecified
CPT/HCPCS: 36415; 80053; 85025; 85652

== ENCOUNTER 2024-05-02 06:06 | Outpatient (REF) | payer MEDICARE, SELFPAY ==
[2024-05-02 07:20] LABS: Alanine Aminotransferase 17 U/L (0-40); Albumin Level 4.2 g/dL (3.5-5.0); Alkaline Phosphatase 82 U/L (39-117); Anion Gap 15 (12-20); Aspartate Amino Transferase 18 U/L (5-37); Bilirubin Total 0.6 mg/dL (0.0-1.0); Blood Urea Nitrogen 18 mg/dL (9-16); Calcium 9.9 mg/dL (8.4-10.2); Carbon Dioxide 23 mmol/L (22-29); Chloride 106 mmol/L (96-108); Estimated Glomerular Filt Rate > 60; Glucose Random 91 mg/dL (60-115); Potassium 4.7 mmol/L (3.3-5.1); Sodium 139 mmol/L (135-145); Total Protein 7.7 g/dL (6.5-8.0)
== END 2024-05-02 06:07 | disposition home or self-care (01) ==
LOC: HO.HSH4W 06:06
PROVIDERS: Visit Provider Internal Medicine
DX: U07.1 COVID-19 (principal); F25.9 Schizoaffective disorder, unspecified
CPT/HCPCS: 36415; 80053

== ENCOUNTER 2024-05-30 06:22 | Outpatient (REF) | payer MEDICARE, SELFPAY ==
[2024-05-30 07:51] LABS: Prostate Specific Antigen 7.01 ng/mL (<0.05-4.0)
== END 2024-05-30 06:23 | disposition home or self-care (01) ==
LOC: HO.HSH4W 06:22
PROVIDERS: Visit Provider Internal Medicine
DX: Z12.5 Encounter for screening for malignant neoplasm of prostate (principal); R97.20 Elevated prostate specific antigen [PSA]
CPT/HCPCS: 36415; 84153

== ENCOUNTER 2024-11-17 06:34 | Outpatient (REF) | payer MEDICARE, SELFPAY ==
[2024-11-17 07:04] LABS: Alanine Aminotransferase 20 U/L (0-40); Albumin Level 3.9 g/dL (3.5-5.0); Anion Gap 13 (12-20); Aspartate Amino Transferase 22 U/L (5-37); Bilirubin Total 0.6 mg/dL (0.0-1.0); Blood Urea Nitrogen 26 mg/dL (9-16); Carbon Dioxide 25 mmol/L (22-29); Chloride 107 mmol/L (96-108); Estimated Glomerular Filt Rate > 60; Glucose Fasting 92 mg/dL (60-99); Potassium 4.2 mmol/L (3.3-5.1); Sodium 141 mmol/L (135-145); Total Protein 7.2 g/dL (6.5-8.0)
[2024-11-17 07:31] LABS: Alkaline Phosphatase 63 U/L (39-117)
== END 2024-11-17 06:35 | disposition home or self-care (01) ==
LOC: HO.HSH4W 06:34
PROVIDERS: Visit Provider Internal Medicine
DX: F20.9 Schizophrenia, unspecified (principal)
CPT/HCPCS: 36415; 80053

== ENCOUNTER 2024-11-21 07:05 | Outpatient (REF) | payer MEDICARE, SELFPAY ==
--- OUTSIDE RECORDS SUMMARY | 2024-11-21 07:11 | XMS_ITS | Encounter Summary ---
Author Organization [employer] Address [address] [facility] [address] [place] [address] Care Team Providers Care Senior Center Director Name Role Phone Unavailable Primary Care Provider Unavailabl e Encounter Details Date Type Department Care Team (Late st Contact Info) Description 09/07/2023 Abstract [facility] [address] [place] [address] Raghavendra Greco, DMD [address] [place] [address] Social History Tobacco Use Types Packs/Day Years Used Date Smoking Tobacco: Unknown Alcohol Use Standard Drinks/Week Comments Defer 0 (1 standard drink = 0.6 oz pur e alcohol) Sex and Gender Information Value Date Recorded Sex Assigned at Male 07/24/2022 10:24 AM EDT Legal Sex Male 10:24 AM EDT Gender Identity Male 07/24/2022 10:24 AM EDT Sexual Orientation Straight 07/24/2022 10 :24 AM EDT documented as of this encounter Plan of Treatment Not on file documented as of this encounter Visit Diagnoses Not on filedocumented in this encounter
--- OUTSIDE RECORDS SUMMARY | 2024-11-21 07:11 | XMS_ITS | Clinical Summary ---
Author Organization [employer] Address [address] [facility] [address] [place] [address] Care Team Providers Care Finishing Machine Operator Name Role Phone Unavailable Primary Care Provider Unavailabl e Allergies No known active allergies Medications gabapentin (Neurontin) 100 MG capsule Take by mouth. Acti ve acetaminophen (Tylenol) 325 MG tablet Take by mouth. Activ e docusate sodium (Colace) 100 MG capsule Take 100 mg by mouth 2 times daily. Active DULoxetine (Cymbalta) [address] capsule Take 30 mg by mouth 2 times daily. Do not crush or chew. Active lidocaine (Lidoderm) 5 % patch Apply 1 patch topically in the morning. Remove & discard patch within 12 hours or as directed by MD. Active loratadine (Claritin) 10 MG tablet Take by mouth. Activ e OLANZapine (ZyPREXA) 10 MG tablet at bedtime. Active bisacodyl (Fleet Bisacodyl) 10 MG/30ML enema Insert 10 mg into the rectum 1 (one) time. Active Social History Tobacco Use Types Packs/Day Years Used Date Smoking Tobacco: Unknown Tobacco Cessation:Counseling Given: Not Answered Alcohol Use Standard Drinks/Week Comments Defer 0 (1 standard drink = 0.6 oz pur e alcohol) Sex and Gender Information Value Date Recorded Sex Assigned at Male 07/24/2022 10:24 AM EDT Legal Sex Male 10:24 AM EDT Gender Identity Male 07/24/2022 10:24 AM EDT Sexual Orientation Straight 07/24/2022 10 :24 AM EDT Plan of Treatment Health Maintenance Due Date Last Done Comments Anal Pap 1957 CT Colonography 1957 Colonoscopy 1957 Colorectal Cancer Screening 1957 Depression Screening 1957 FIT DNA/Cologuard 1957 FIT 1957 FOBT 1957 Lipid Panel 1957 SDOH Screening 1957 Sigmoidoscopy 1957 Alcohol/Substance Use Screening 1969 Hepatitis C Screening 12/19/1975 DTaP/Tdap/Td Vaccines (1 - Tdap) 1976 Hepatitis A Vaccines (1 of 2 - Risk 2-dose series) 1976 Hepatitis B Vaccines (1 of 3 - Risk 3-dose series) 2017 RSV Patients and Patients Aged 60 years or older (1 - Risk 60-74 years 1-dose series) 2017 Dental Prophylaxis 06/14/2019 12/11/2018, 0 05/17/2018, 01/03/2016 Dental Oral Exam 11/19/2021 05/18/2021, , 12/15/2015, Additional history exists Dental X-Ray: Bitewings 05/19/2022 05/18/2021 Dental X-Ray: Full Mouth 05/19/2024 05/18/2021 COVID-19 Vaccine ( season) 2024 06/08/2022, 01/03/2022, 06/20/2021, Additional history exists Influenza Vaccine (#1) 2024 , 06/03/2020, 07/10/2019 Tobacco Screening 09/05/2024 09/05/2023 Zoster Vaccines Completed 03/21/2022, 01/13/2022 Pneumococcal Vaccine: 50+ Years Completed 07/06/2022 HIB Vaccines Aged Out No longer eligi ble based on patient's age to complete this topic HPV Vaccines Aged Out No longer eligi ble based on patient's age to complete this topic IPV Vaccines Aged Out No longer eligi ble based on patient's age to complete this topic Meningococcal Vaccine Aged Out No leigh selena eligible based on patient's age to complete this topic RSV under 20 months Aged Out No longe r eligible based on patient's age to complete this topic Rotavirus Vaccines Aged Out No longer eligible based on patient's age to complete this topic Procedures Procedure Name Priority Date/Time Associated Diagnosis Comments INTRAORAL - COMPLETE SERIES OF RADIOGRAPHIC IMAGES Routine 05/18/2021 12:00 AM EDT PERIODIC ORAL EVALUATION - ESTABLISHED PATIENT Routine 05/18/2021 12:00 AM EDT PROPHYLAXIS - ADULT Routine 12/11/2018 1 2:00 AM EDT from Last 3 Months or Most Recently Relevant to Health Maintenance
--- OUTSIDE RECORDS SUMMARY | 2024-11-21 07:11 | XMS_ITS | Encounter Summary ---
Author Organization [employer] Address [address] [facility] [address] [place] [address] Care Team Providers Care Instructor Traffic Safety Name Role Phone Unavailable Primary Care Provider Unavailabl e Encounter Details Date Type Department Care Team (Latest Contact Info) Description 12/11/2018 Abstract [facility] CONVERSIONS Dental, Provider, DDS Social History Tobacco Use Types Packs/Day Years Used Date Smoking Tobacco: Never Assessed Sex and Gender Information Value Date Recorded [...]
== END 2024-11-21 07:06 | disposition home or self-care (01) ==
LOC: HO.HSH 07:05
PROVIDERS: Visit Provider Internal Medicine
DX: N40.1 Benign prostatic hyperplasia with lower urinary tract symptoms (principal); Z12.5 Encounter for screening for malignant neoplasm of prostate
CPT/HCPCS: 36415; 84153

== ENCOUNTER 2024-11-26 14:35 | Outpatient (AMB) | payer MEDICARE, SELFPAY ==
--- NOTE | 2024-11-26 14:39 | A.OFFVIS_ITS ---
Intake Intake Visit Reasons: rising PSA Intake Note: Patient presents at the 's home for follow up on rising psa Supervisor Last Model Department Required: No Allergies No Known Allergies [No Known Allergies*] Allergy (Unverified 11/26/24 20:48) Medication List - Last Reconciled 11/26/24 by VICKI Bond- bisacodyl 10 mg [place] DAILY PRN docusate sodium 100 mg PO DAILY duloxetine 30 mg PO DAILY edetate disodium 3% drps ophthalmic (eye) finasteride 5 mg PO DAILY 90 days gabapentin 400 mg PO BEDTIME hydrocortisone 1% 1 appl topical BID PRN lactulose grams PO lidocaine 5% 1 patch topical DAILY loratadine (Allergy Relief (loratadine)) 10 mg PO DAILY magnesium hydroxide (Dulcolax (magnesium hydroxide)) 30 mL PO DAILY PRN melatonin 3 mg PO BEDTIME PRN naproxen 250 mg PO BID olanzapine 5 mg PO DAILY olanzapine 10 mg PO BEDTIME polyethylene glycol 3350 17 grams PO DAILY sodium chloride 0.65% (Nasal [place] (sodium chloride)) 2 sprays intranasal BEDTIME sodium phosphates 19-7 gram/118 mL (Enema Disposable) 118 mL [place] DAILY PRN HPI HPI Comments History of Present Illness Details Aki is a 68-year-old male patient of Dr. Arevalo who resides at the [facility]. He has a past medical history of age related osteoporosis, benign prostatic hyperplasia without lower urinary tract symptoms, constipation, deviated nasal septum, elevated PSA, hypertension, hyperlipidemia, insomnia, major depressive disorder, nicotine dependence, schizophrenia, Parkinson's disease, and type 2 diabetes. He is being followed up on today for elevated PSA. Of note, patient was last seen approximately 18 months ago at which time he was started on finasteride in the setting of elevated PSA. However in review of patient's chart it appears this has been discontinued as patient had been reporting side effects however unsure as to exactly what side effects patient was experiencing. Urology consulted due to elevated PSA. In discussion with the patient today we discussed potential causes of elevated PSA as well as further interventions to include prostate MRI verses prostate biopsy verses restart of finasteride. Risks and benefits of these interventions were discussed. All questions were answered. Previous workup has included a retroperitoneal ultrasound 05/16 noting bilateral kidneys with no calculi, lesions, and or hydronephrosis noted. The bladder is well distended and normal. Pre void bladder volume is approximately 250 mL. Postvoid bladder volume is approximately 10 mL. Enlarged prostate with a volume of approximately 45 mL. PSAs are as follows: 09/10 4.8, 09/10--5.5 % free 20%, 04/11 5 .3, 11/13 4.3, 11/13 5.1 % free 18%, 01/12 6.2, 08/14 6.2, 11/15 4.8, 04/15 7.7, 04/15 7.0 % free 21%, 05/16 6.3, 05/16 6.1 % free 18%, 10/17 5.3, 06/17 7.0, 11/18 11.2 When asked patient reports to be doing and feeling well. MAGGIE was performed however unable to palpate prostate as patient with constipation. He denies any bothersome urinary issues or concerns. He reports be happy with current voiding parameters. When asked he denies urinary urgency, urinary frequency, incontinence, nocturia, hematuria, dysuria, foul smelling urine, changes to urinary stream, flank pain, fever, and or chills. He denies any known family history of prostate cancer. [facility] Medical History Age-related osteoporosis without current pathological fracture Benign prostatic hyperplasia without lower urinary tract symptoms Constipation, unspecified Deviated nasal septum Elevated prostate specific antigen [PSA] Essential (primary) hypertension Hyperlipidemia, unspecified Insomnia, unspecified Major depressive disorder, single episode, unspecified Nicotine dependence, cigarettes, uncomplicated Other schizoaffective disorders Other specified disorders of nose and nasal sinuses Pain in left knee Pain in unspecified thigh Pain, unspecified Parkinson's disease Personal history of nicotine dependence Personal history of other diseases of urinary system Psychophysiologic insomnia Rash and other nonspecific skin eruption Sacrococcygeal disorders, not elsewhere classified Schizoaffective disorder, unspecified Schizophrenia, unspecified Sciatica, left side Type 2 diabetes mellitus without complications Unspecified cataract Surgical History History of prostate biopsy (~2017) Review of Systems Const Reports as per HPI Eyes Reports no additional complaints ENT Reports as per HPI Card Reports as per HPI Resp Reports no additional complaints GI Reports as per HPI Reports as per HPI Musc Reports as per HPI Neuro Reports as per [facility] Psych Reports as per [facility] Endo Reports as per [facility] Physical Exam Const General: cooperative, comfortable, no acute distress, well developed, alert and awake Nutritional Appearance: overweight Orientation/consciousness: patient oriented x3 Limitations: no limitations HEENT Head: Yes normal to inspection, Yes normocephalic and Yes atraumatic Ears: hearing grossly normal bilaterally Eyes General: appearance normal, both eyes and all related structures Neck Neck: Yes normal visual inspection and Yes trachea midline Chest Chest palpation & inspection: normal inspection of the chest Resp Effort & Inspection: normal respiratory effort and able to speak in complete sentences Cardio Rate: regular rate GI Inspection: Yes normal to inspection General: Yes no CVA tenderness Back/Spine/Pelvis Back: no CVA tenderness Skin General skin exam: no rashes or lesions noted Neuro General: patient oriented x3 Extrem General: Yes normal to inspection Psych Appearance: grossly normal and well kempt Speech and movement: Normal speech and movement present and Clear speech present Affect: Other affect and mood findings present (flat affect ) Attitude: cooperative Thought content: Normal thought content present Insight: Fair insight present (Psych) Judgement: Fair judgement present (Psych) Assessment & Plan Assessment & Plan (1) Elevated prostate specific antigen [PSA]: Code(s): R97.20 - Elevated prostate specific antigen [PSA] Plan Restart finasteride 5 mg daily. We discussed potential causes of elevated PSA as well as further treatment options and risks and benefits of these treatment options. We discussed obtaining MRI of the prostate. Patient currently denies any bothersome urinary issues or concerns. He reports be happy with current voiding parameters. MAGGIE was performed however patient was constipated unable to assess prostate. Will obtain PSA in 4 months. Follow-up in 4 months with PSA to be completed prior; or sooner with any issues, concerns, and or questions. Orders: Orders PSA,Total (Free>4and<10) Today R97.20 - Elevated prostate specific antigen [PSA] Medications: New finasteride 5 mg PO DAILY 90 days 90 tabs 1RF N32.0 - Bladder-neck obstruction Patient Instructions: The patient had an opportunity to ask questions regarding the treatment plan. All questions were answered. Physical exam, labs, and imaging were discussed and reviewed in detail. As well as risks, benefits, and discussion of treatment choices. No major barriers to understanding were identified. The patient expressed understanding and agreement with the above treatment plan. The patient was made aware they should contact our office by phone for worsening of their current condition, the appearance of new symptoms, or with any questions or concerns. Compliance is encouraged with any medications and follow up testing that is ordered. It is a privilege to be allowed the opportunity to participate in? your urological care.? Again, if you have any questions or concerns If you have any questions or concerns please do not hesitate to contact me. The office is [phone]. This note is constructed using voice recognition software. While every effort has been made to ensure accuracy cookie breaker errors may have been included. Yours sincerely, KOSTAS Bond Coding Level of Care Code 29162-Mvnv Fac sub, mod Diagnoses Elevated prostate specific antigen [PSA] R97.20 Time Spent (min) 30
== END 2024-11-26 16:45 | disposition home or self-care (01) ==
LOC: HO.HUSV 14:35
PROVIDERS: PCP Internal Medicine; Visit Provider Nurse Practitioner Family
DX: R97.20 Elevated prostate specific antigen [PSA] (principal)
CPT/HCPCS: 99309

== ENCOUNTER 2025-01-07 07:00 | Outpatient (REF) | payer MEDICARE, SELFPAY ==
[2025-01-07 07:03] LABS: MANUAL DIFF FLAG NO
[2025-01-07 07:14] LABS: Basophils Absolute Auto 0.1 X10*3/uL (0.0-0.2); Basophils Percent Auto 1.1 % (0-2); Eosinophils Absolute Auto 0.3 X10*3/uL (0.0-0.4); Eosinophils Percent Auto 4.8 % (0-4); Hematocrit 45.1 % (42.0-52.0); Hemoglobin 15.2 g/dl (14.0-18.0); Imm Gran Abs Auto 0.04 X10*3/uL (0.00-0.03); Imm Gran Pct Auto 0.7 % (0.0-0.4); Lymphocytes Absolute Auto 1.9 X10*3/uL (1.2-4.9); Mean Corpuscular HGB Conc 33.7 g/dl (31.0-36.0); Mean Corpuscular Hemoglobin 30.6 pg (27.0-33.0); Mean Corpuscular Volume 90.9 fL (80.0-98.0); Mean Platelet Volume 10.8 fL (9.4-12.4); Monocytes Absolute Auto 0.5 X10*3/uL (0.1-1.2); Monocytes Percent Auto 8.4 % (2-11); Neutrophils Absolute Auto 2.9 x10*3/uL (2.0-8.3); Platelet Count 177 X10*3/uL (160-400); Red Blood Count 4.96 X10*6/uL (4.60-5.80); Red Cell Distribution Width 13.5 % (11.0-16.0); White Blood Count 5.6 X10*3/uL (4.8-10.8)
== END 2025-01-07 07:01 | disposition home or self-care (01) ==
LOC: HO.HSH4W 07:00
PROVIDERS: Visit Provider Internal Medicine
DX: D64.9 Anemia, unspecified (principal); R06.02 Shortness of breath
CPT/HCPCS: 36415; 85025

== ENCOUNTER 2025-02-23 07:20 | Outpatient (REF) | payer MEDICARE, SELFPAY ==
[2025-02-23 07:35] LABS: MANUAL DIFF FLAG NO
[2025-02-23 07:45] LABS: Basophils Percent Auto 0.7 % (0-2); Eosinophils Absolute Auto 0.3 X10*3/uL (0.0-0.4); Eosinophils Percent Auto 6.4 % (0-4); Hematocrit 46.6 % (42.0-52.0); Hemoglobin 15.2 g/dl (14.0-18.0); Imm Gran Abs Auto 0.02 X10*3/uL (0.00-0.03); Imm Gran Pct Auto 0.4 % (0.0-0.4); Lymphocytes Absolute Auto 1.4 X10*3/uL (1.2-4.9); Lymphocytes Percent Auto 26.4 % (20-40); Mean Corpuscular HGB Conc 32.6 g/dl (31.0-36.0); Mean Corpuscular Hemoglobin 30.5 pg (27.0-33.0); Mean Corpuscular Volume 93.6 fL (80.0-98.0); Mean Platelet Volume 11.6 fL (9.4-12.4); Monocytes Absolute Auto 0.5 X10*3/uL (0.1-1.2); Monocytes Percent Auto 8.8 % (2-11); Neutrophils Absolute Auto 3.1 x10*3/uL (2.0-8.3); Neutrophils Percent Auto 57.3 % (45-73); Platelet Count 165 X10*3/uL (160-400); Red Blood Count 4.98 X10*6/uL (4.60-5.80); Red Cell Distribution Width 13.7 % (11.0-16.0); White Blood Count 5.4 X10*3/uL (4.8-10.8)
[2025-02-23 08:04] LABS: Cholesterol 238 mg/dL (<200); HDL Cholesterol 28 mg/dL (>40); LDL Cholesterol Calculated 181 mg/dL (<100); Triglycerides 148 mg/dL (<150)
[2025-02-23 08:18] LABS: Thyroid Stimulating Hormone 1.91 uIU/mL (0.32-4.0)
[2025-02-23 08:19] LABS: Prostate Specific Antigen Scr 8.12 ng/mL (<0.05-4.0)
== END 2025-02-23 07:21 | disposition home or self-care (01) ==
LOC: HO.HSH 07:20
PROVIDERS: Visit Provider Internal Medicine
DX: F20.9 Schizophrenia, unspecified (principal); N40.0 Benign prostatic hyperplasia without lower urinary tract symptoms; R97.20 Elevated prostate specific antigen [PSA]; E78.5 Hyperlipidemia, unspecified; Z12.5 Encounter for screening for malignant neoplasm of prostate
CPT/HCPCS: 36415; 80061; 84153; 84443; 85025

== ENCOUNTER 2025-03-25 12:01 | Outpatient (AMB) | payer MEDICARE, SELFPAY ==
--- NOTE | 2025-03-25 12:01 | A.OFFVIS_ITS ---
Intake Visit Reasons: rising PSA Intake Note: Patient is present for RISING PSA Urology Medication:FINASTERIDE Antibiotic Allergy:NONE Blood Thinner:NONE Molded Goods Embossing Press Operator Required: No Allergies No Known Allergies (No Known Allergies*) Allergy (Verified 03/25/25 12:02) REPLACED BY [facility] Medical History Age-related osteoporosis without current pathological fracture Benign prostatic hyperplasia without lower urinary tract symptoms Constipation, unspecified Deviated nasal septum Elevated prostate specific antigen [PSA] Essential (primary) hypertension Hyperlipidemia, unspecified Insomnia, unspecified Major depressive disorder, single episode, unspecified Nicotine dependence, cigarettes, uncomplicated Other schizoaffective disorders Other specified disorders of nose and nasal sinuses Pain in left knee Pain in unspecified thigh Pain, unspecified Parkinson's disease Personal history of nicotine dependence Personal history of other diseases of urinary system Psychophysiologic insomnia Rash and other nonspecific skin eruption Sacrococcygeal disorders, not elsewhere classified Schizoaffective disorder, unspecified Schizophrenia, unspecified Sciatica, left side Type 2 diabetes mellitus without complications Unspecified cataract Surgical History History of prostate biopsy (~2018) Coding
--- OUTSIDE RECORDS SUMMARY | 2025-03-25 12:42 | XMS_ITS | Encounter Summary ---
Author Organization [employer] Address [address] [facility] [address]t [place] [address] Care Team Providers Care Batting Machine Operator Insulation Name Role Phone Unavailable Primary Care Provider Unavailabl e Encounter Details Date Type Department Care Team (Late st Contact Info) Description 09/03/2023 Abstract [facility] [address] [place] [address] Raghavendra Greco, DMD [address] [place] [address] Social History Tobacco Use Types Packs/Day Years [...]
--- NOTE | 2025-03-25 16:21 | HO.VETSHOME ---
Intake Intake Visit Reasons: rising PSA Allergies No Known Allergies (No Known Allergies*) Allergy (Verified 03/25/25 12:02) HPI HPI Comments History of Present Illness Details Selma is a pleasant male. He is a patient at [facility]. He seen for the following urologic conditions - lower urinary tract symptoms - elevated PSA 03/18 PSA 8.1 PSA has dropped from 11.2-8.1 on finasteride which was restarted Suggest prostate MRI to rule out prostate abnormalities Previous workup has included a retroperitoneal ultrasound 05/16 noting bilateral kidneys with no calculi, lesions, and or hydronephrosis noted. The bladder is well distended and normal. Pre void bladder volume is approximately 250 mL. Postvoid bladder volume is approximately 10 mL. Enlarged prostate with a volume of approximately 45 mL. PSAs are as follows: 09/10 4.8, 09/10--5.5 % free 20%, 04/11 5.3, 11/13 4.3, 11/13 5.1 % free 18%, 01/12 6.2, 08/14 6.2, 11/15 4.8, 04/15 7.7, 04/15 7.0 % free 21%, 05/16 6.3, 05/16 6.1 % free 18%, 10/17 5.3, 06/17 7.0, 11/18 11.2 [facility] Medical History (Updated 03/25/25 @ 16:22 by Evan Quinn MD) Other specified disorders of nose and nasal sinuses Personal history of other diseases of urinary system Nicotine dependence, cigarettes, uncomplicated Schizophrenia, unspecified Essential (primary) hypertension Rash and other nonspecific skin eruption Deviated nasal septum Elevated prostate specific antigen [PSA] Psychophysiologic insomnia Other schizoaffective disorders Benign prostatic hyperplasia without lower urinary tract symptoms Sacrococcygeal disorders, not elsewhere classified Pain in left knee Major depressive disorder, single episode, unspecified Pain, unspecified Type 2 diabetes mellitus without complications Pain in unspecified thigh Schizoaffective disorder, unspecified Unspecified cataract Parkinson's disease Age-related osteoporosis without current pathological fracture Insomnia, unspecified Hyperlipidemia, unspecified Constipation, unspecified Sciatica, left side Personal history of nicotine dependence Surgical History History of prostate biopsy (~2017) Review of Systems Const Denies chills and Denies fever(s) Card Reports no additional complaints and Denies syncope Resp Denies cough GI Denies abdominal pain and Denies heartburn Reports as per HPI and Denies change in libido Neuro Denies syncope Psych Denies change in libido Endo Denies change in libido Physical Exam Const General: cooperative, healthy appearing, comfortable and no acute distress Orientation/consciousness: patient oriented x3 HEENT Face and sinus: Yes normal facial exam Mouth: moist mucous membranes Neck Neck: Yes normal visual inspection, Yes full ROM and Yes trachea midline Chest Chest palpation & inspection: normal inspection of the chest Resp Effort & Inspection: normal respiratory effort, able to speak in complete sentences and no respiratory distress GI Inspection: Yes normal to inspection Back/Spine/Pelvis Cervical Spine: normal cervical lordosis Thoracic/Lumbar Spine: thoracic and lumbar spine normal to inspection Skin General skin exam: no rashes or lesions noted Neuro General: patient oriented x3, gait normal, tone normal and moves all extremities Extrem General: Yes normal to inspection and Yes capillary refill normal Assessment & Plan Assessment & Plan (1) Elevated prostate specific antigen [PSA]: Code(s): R97.20 - Elevated prostate specific antigen [PSA] (2) Benign prostatic hyperplasia without lower urinary tract symptoms: Code(s): N40.0 - Benign prostatic hyperplasia without lower urinary tract symptoms Plan Prostate MRI Patient Instructions: This note is constructed using voice recognition software. While every effort has been made to ensure accuracy agricultural extension agent errors may have been included. Imaging studies, laboratory and physical exam results were discussed and reviewed in detail. No major barriers to patient understanding were identified. An opportunity to ask questions regarding the treatment plan was provided. All questions were answered. The patient expressed understanding and agreement with the above treatment plan. The patient is aware they should contact our office by phone for worsening of their current condition or the appearance of new urologic symptoms. Compliance is encouraged with any medications and followup testing that is ordered. It is a privilege to participate in the urologic care of your patient. If you have any questions or concerns regarding treatment for the above conditions, or other urologic issues, please do not hesitate to contact me. The office telephone contact is [phone]. Sincerely, Dr Evan Quinn MD, [facility] Compassionate Specialist Care for the Genitourinary System Coding Level of Care Code 87823-[id number] Fac initial, mod Diagnoses Elevated prostate specific antigen [PSA] R97.20 Benign prostatic hyperplasia without lower urinary tract symptoms N40.0
== END 2025-03-25 16:26 | disposition home or self-care (01) ==
LOC: HO.HUSV 12:01
PROVIDERS: PCP Internal Medicine; Visit Provider Urology
DX: R97.20 Elevated prostate specific antigen [PSA] (principal); N40.0 Benign prostatic hyperplasia without lower urinary tract symptoms
CPT/HCPCS: 99305

== ENCOUNTER 2025-05-22 10:02 | Outpatient (REF) | payer MEDICARE, SELFPAY ==
--- NOTE | ~2025-05-22 | MR_ITS ---
EXAM: MRI Lumbar Spine without Contrast. TECHNIQUE: Multiplanar multisequence MR imaging was performed through the lumbar spine without contrast. INDICATION: Spinal stenosis PRIOR: August 27, 2023 FINDINGS: For numbering purposes, there are 5 nonrib-bearing lumbar segments with a transitional sacralized L5 segment. Marrow and end-plates: There is mild chronic wedging of L1 that could be physiologic in nature. There are no marrow replacing lesions. There is mild Modic 1 signal change at L2-3. Alignment: There is subtle retrolisthesis at L1-2, L2-3, L3-4. Unchanged. Soft tissues: Small simple renal cysts are present bilaterally. Conus: The termination of conus medullaris is within normal limits at the level of T12-L1. T12-L1: Unremarkable L1-L2: There is mild circumferential broad-based disc bulge and minimal annular fissuring posteriorly not resulting in spinal stenosis or foraminal narrowing. L2-L3: There is mild circumferential broad-based disc bulge and posterior annular fissuring likely with a small protrusion or extrusion that is mildly increased since the prior. However, there is no spinal stenosis. There is mild subarticular zone narrowing, greater on the right. There is mild bilateral foraminal narrowing. L3-L4: There is circumferential broad-based disc bulge and endplate osteophytes with small central and right subarticular zone extrusion that is mildly increased from the prior resulting in mild spinal stenosis and mild bilateral subarticular zone narrowing, slightly increased since prior. L4-L5: There is mild loss of disc height and small central extrusion. There is moderate facet degeneration with osteophytes. There is no spinal stenosis. There is severe bilateral foraminal narrowing that is slightly increased from the prior. Sacralized L5-S1: Unremarkable. MR/MR lumbar spine wo con IMPRESSION: There is a transitional segment that is labeled L5 for numbering purposes. L2-L3: There is mild subarticular zone narrowing, greater on the right. L3-L4: There is mild spinal stenosis and mild bilateral subarticular zone narrowing, slightly increased since prior. L4-L5: There is severe bilateral foraminal narrowing that is slightly increased from the prior. Electronically signed by: Jim Rae MD 05/22/2025 11:39 AM EDT
--- OUTSIDE RECORDS SUMMARY | 2025-05-22 10:47 | XMS_ITS | Encounter Summary ---
Author Organization [employer] Address [address] [facility] 7t [place] [address] Care Team Providers Care Sas Analyst Name Role Phone Unavailable Primary Care Provider Unavailabl e Encounter Details Date Type Department Care Team (Late st Contact Info) Description 09/03/2023 Abstract [facility] [address] [place] [address] Raghavendra Greco, DMD [address] [place] [address] Social History Tobacco Use Types Packs/Day Years [...]
--- OUTSIDE RECORDS SUMMARY | 2025-05-22 10:47 | XMS_ITS | Clinical Summary ---
Author Organization [employer] Address [address] [facility] 7 [place] [address] Care Team Providers Care Attendant Campground Name Role Phone Unavailable Primary Care Provider [...] 2024 06/08/2022, 01/03/2022, 06/20/2021, Additional history exists Tobacco Screening 09/05/2024 09/05/2023 Influenza Vaccine (#1) 2025 , 06/03/2020, 07/10/2019 Zoster Vaccines Completed 03/21/2022, 01/13/2022 Pneumococcal Vaccine: 50+ Years Completed 07/06/2022 HIB Vaccines Aged Out No longer eligi ble based on patient's age to complete this topic HPV Vaccines Aged Out No longer eligi ble based on patient's age to complete this topic IPV Vaccines Aged Out No longer eligi ble based on patient's age to complete this topic Meningococcal B Vaccine Aged Out No l onger eligible based on patient's age to complete [...]
--- OUTSIDE RECORDS SUMMARY | 2025-05-22 10:47 | XMS_ITS | Encounter Summary ---
Author Organization [employer] Address [address] [facility] 7t [place] [address] Care Team Providers Care Duco Polisher Name Role Phone Unavailable Primary Care Provider Unavailabl e Encounter Details Date Type Department Care Team (Late st Contact Info) Description 09/07/2023 Abstract [facility] [address] [place] [address] Raghavendra Greco, DMD [address] [place] [address] Social History Tobacco Use Types Packs/Day Years [...]
--- OUTSIDE RECORDS SUMMARY | 2025-05-22 10:47 | XMS_ITS | Encounter Summary ---
Author Organization [employer] Address [address] [facility] [address] [place] [address] Care Team Providers Care Grain Merchandiser Name Role Phone Unavailable Primary Care Provider Unavailabl e Encounter Details Date Type Department Care Team (Latest Contact Info) Description 12/11/2018 Abstract [facility] CONVERSIONS Dental, Provider, DDS Social History [...]
== END 2025-05-22 10:03 | disposition home or self-care (01) ==
LOC: HO.MRI 10:02
PROVIDERS: Visit Provider Internal Medicine
DX: M48.07 Spinal stenosis, lumbosacral region (principal)
CPT/HCPCS: 72148

== ENCOUNTER → 2025-05-22 10:22 | Outpatient (BNV) | payer MEDICARE, SELFPAY | PROVIDERS: Visit Provider Radiology Diagnostic Radiology | DX: M48.061 Spinal stenosis, lumbar region without neurogenic claudication (principal) | CPT/HCPCS: 72148 ==

== ENCOUNTER 2025-08-12 06:37 | Outpatient (REF) | payer MEDICARE, SELFPAY ==
[2025-08-12 07:40] LABS: Prostate Specific Antigen 7.50 ng/mL (<0.05-4.0)
--- OUTSIDE RECORDS SUMMARY | 2025-08-12 14:58 | XMS_ITS | Encounter Summary ---
Author Organization [employer] Address [address] [facility] [address] [place] [address] Care Team Providers Care Templer Head Name Role Phone Unavailable Primary Care Provider Unavailabl e Encounter Details Date Type Department Care Team (Late st Contact Info) Description 09/07/2023 Abstract [facility] [address] [place] [address] Raghavendra Greco, DMD [address] [place] [address] Social History Tobacco Use Types Packs/Day Years [...]
--- OUTSIDE RECORDS SUMMARY | 2025-08-12 14:58 | XMS_ITS | Clinical Summary ---
Author Organization [employer] Address [address] [facility] 7 [place] [address] Care Team Providers Care Volunteer Services Coordinator Name Role Phone Unavailable Primary Care Provider [...] of 2 - Risk 2-dose series) 1976 RSV Patients and Patients Aged 60 years or older (1 - Risk 50-74 years 1-dose series) 12/19/2007 Hepatitis B Vaccines (1 of 3 - Risk 3-dose series) 2017 Dental Prophylaxis 06/14/2019 12/11/2018, 0 05/17/2018, 01/03/2016 Dental Oral Exam 11/19/2021 05/18/2021, , 12/15/2015, Additional history exists Dental X-Ray: Bitewings 05/19/2022 05/18/2021 Dental X-Ray: Full Mouth 05/19/2024 05/18/2021 Tobacco Screening 09/05/2024 09/05/2023 COVID-19 Vaccine ( season) 2025 06/08/2022, 01/03/2022, 06/20/2021, Additional history exists Influenza Vaccine (#1) 2025 , 06/03/2020, 07/10/2019 [...]
--- OUTSIDE RECORDS SUMMARY | 2025-08-12 14:58 | XMS_ITS | Encounter Summary ---
Author Organization [employer] Address [address] [facility] [address] [place] [address] Care Team Providers Care Logistics Vice President Name Role Phone Unavailable Primary Care Provider Unavailabl e Encounter Details Date Type Department Care Team (Latest Contact Info) Description 12/11/2018 Abstract [facility] CONVERSIONS Dental, Provider, DDS Social History [...]
--- OUTSIDE RECORDS SUMMARY | 2025-08-12 14:58 | XMS_ITS | Encounter Summary ---
Author Organization [employer] Address [address] [facility] 7t [place] [address] Care Team Providers Care Title Manager Name Role Phone Unavailable Primary Care Provider Unavailabl e Encounter Details Date Type Department Care Team (Late st Contact Info) Description 09/03/2023 Abstract [facility] [address] [place] [address] Raghavendra Greco, DMD [address] [place] [address] Social History Tobacco Use Types Packs/Day Years [...]
--- OUTSIDE RECORDS SUMMARY | 2025-08-12 14:58 | XMS_ITS | Data Portability ---
Author Organization [place] [facility], Allergy Address [address] [address] Assessment Encounter Date Assessment Date Assessment LastModified by Organization Details LastModified Time 06/30/2024 06/30/2024 68-year-old male with schizoaffective disorder presents for evaluation of fluttering in the nose. Examination of the nose shows septum which is straight. There is some mild congestion. No purulent rhinorrhea or sign of polyps. Recommended a trial of Flonase. I see no indication that the patient will need a septoplasty which was the reason for referral. He will trial Flonase and if he continues to have congestion they may call for reevaluation. Otherwise he may follow-up as needed. juli Not available 06/30/2024 12:08:07 Plan of Treatment Reminders Order Date Submit Date Provider Last Modified By Organization Details Last Modified Time Details Appointments None recorded. Lab None recorded. Referral None recorded. Procedures None recorded. Surgeries None recorded. Imaging None recorded. Medication Orders fluticasone propionate 50 mcg/actuati on nasal spray,suspe nsion 2023 024 [facility], [address] [place], [place], [id number], 18:42:16 Patient TargetsNo targets recorded. Patient InstructionsNo instructions recorded. Reason for Referral None Reported. Problems Name Problem SNOMED Code Status Onset Date Resolution Date Notes Provider Name and Address Organization Details Recorded Time Disorder of nasal sinus 6893396 Active 2022 Other specified disorders of nose and nasal sinuses; Note: Date Diagnosed: 04/16/2023 5:03 PM (J34.89) Not Available [facility] 4 02:40:12 Disorder of the nose 69869355 Active 2022 Other specified disorders of nose and nasal sinuses; Note: Date Diagnosed: 04/16/2023 5:03 PM (J34.89) Not Available [facility] 4 02:40:12 Deviated nasal septum 034711058 Active 2022 Deviated nasal septum; Note: Date Diagnosed: 04/16/2023 5:03 PM (J34.2) Not Available [facility] 4 02:40:10 Nasal congestio n 44314204 Active 2023 [facility] [address] [place] [address],[place] [address], [place], [address] , [facility] - [facility] 12:08:12 Problem Notes None recorded. Medical Equipment None Reported. Medications Name Sig Start Date Stop Date Status Note LastModified by Organization Details LastModified Time loratadine 5 mg/5 mL oral solution active Medicatio n ID: [id number] Br and Name: loratadin e Send Method: E-Prescri bed Subs Allowed: subs [place] Medica tionGener icName: loratadin e Not Available Not Available Not Available olanzapine 5 mg tablet active Medicatio n ID: [id number] Br and Name: olanzapin e Send Method: E-Prescri bed Subs Allowed: subs [place] Medica tionGener icName: olanzapin e Not Available Not Available Not Available olanzapine 10 mg tablet active Medicatio n ID: [id number] Br and Name: olanzapin e Send Method: E-Prescri bed Subs Allowed: subs [place] Medica tionGener icName: olanzapin e Not Available Not Available Not Available melatonin 3 mg tablet active Medicatio n ID: [id number] Br and Name: melatonin Send Method: E-Prescri bed Subs Allowed: subs [place] Medica tionGener icName: melatonin Not Available Not Available Not Available docusate sodium 100 mg capsule active Medicatio n ID: [id number] Br and Name: docusate sodium Se nd Method: E-Prescri bed Subs Allowed: subs [place] Medica tionGener icName: docusate sodium Not Available Not Available Not Available gabapentin 300 mg capsule active Medicatio n ID: [id number] Br and Name: gabapenti n Send Method: E-Prescri bed Subs Allowed: subs [place] Medica tionGener icName: gabapenti n Not Available Not Available Not Available fluticason e propionate 50 mcg/actuat ion nasal spray,susp ension [place] 1 spray every day by intranasa l route. 2023 active Not Available Not Available Not Avai lable polyethyle ne glycol active Medicatio n ID: [id number] Br and Name: polyethyl jojo glycol Se nd Method: E-Prescri bed Subs Allowed: subs [place] Medica tionGener icName: polyethyl jojo glycol Not Available Not Available Not Available duloxetine active Medicatio n ID: [id number] Br and Name: Duloxetin e Send Method: E-Prescri bed Subs Allowed: subs [place] Medica tionGener icName: Duloxetin e Not Available Not Available Not Available acetaminop hen 325 mg capsule active Medicatio n ID: [id number] Br and Name: acetamino phen Send Method: E-Prescri bed Subs Allowed: subs [place] Medica tionGener icName: acetamino phen Not Available Not Available Not Available Vitals Date Recorded Body height Body mass index (BMI) Body weight Provider Name and Address Organization Details Last Updated DateTime 06/30/2024 172.72 cm 33.5 kg/m2 85233.32 g Amandeep Sutherland [place] - [facility] 06/30/2024 11:17:40 Social History None recorded. Functional Status None recorded. Mental Status None recorded. Family History Nothing Reported. Medical History No medical history recorded. Past Encounters Encounter ID Performer Location Encounter Start Date Encounter Closed Date Diagnosis/Indication Diagnosis SNOMED-CT Code Diagnosis ICD10 Code Diagnosis IMO Codes Diagnosis Note LUIS NICHOLAS PA-C [facility] [address] [address] 06/30/2024 11:03:55 06/30/2024 11:25:44 Nasal congestion 75553044 R09.81 Health Concerns Section Related Observation LastModified by Organization Detai ls LastModified Time None Recorded Concern Status LastModified by Organization Details LastModified Time None Recorded Advance Directives Directive None Recorded Payers Insurance Date Sequence Insurance Name Policy Number Policy Duffy Covered Member ID Duffy Member ID Guarantor Name 06/30/2024 1 [place] [employer] Aki Wooten [id number] Aki Javier Je Notes Date Note Type Note Provider Name and Address Organization Details Recorded Time 06/30/2024 text/html ROS as noted in the HPI 68-year-old male with schizoaffective disorder [facility]. He is most bothered by a fluttering sensation in his nose when he lies on his right side at night. He states it keeps him awake at night. They have trialed saline without much benefit. No drainage from the nose or pressure in the face. LUIS NICHOLAS PA-C [address] [place] [address], [id number], [facility] - [facility] 06/30/2024 14:49:34
== END 2025-08-12 06:38 | disposition home or self-care (01) ==
LOC: HO.HSH4W 06:37
PROVIDERS: Visit Provider Internal Medicine
DX: Z12.5 Encounter for screening for malignant neoplasm of prostate (principal); R97.20 Elevated prostate specific antigen [PSA]
CPT/HCPCS: 36415; 84153